=== PATIENT | female | born 1990 | race Caucasian/White ===

== ENCOUNTER 2016-10-01 20:20 | Emergency (ER) | payer OTHER ==
[2016-10-01] MEDS ORDERED: DEXAMETHASONE SOD PHOS INJ 10 MG/1 ML VIAL IM ONE (20:41)
[2016-10-01] MEDS ORDERED: DIPHENHYDRAMINE HCL 50 MG/ML VIAL IM ONE (20:41)
[2016-10-01] MEDS ORDERED: FAMOTIDINE 20 MG TABLET PO ONE (20:42)
--- NOTE | 2016-10-01 20:52 | ER Document Report ---
ED General - General Chief Complaint: Rash Stated Complaint: POSSIBLE ALLERGIC REACTION Time Seen by Provider: 10/01/16 20:36 Mode of Arrival: Ambulatory Information source: Patient Notes: Patient presents emergency department with reports that she was walking her dog is grasping some fire ants bit her. She reports she immediately started itching. She has hives to her foot upper thighs and her trunk. Patient reports it feels chest tightness that comes and goes. Patient reports she is not allergic to anything that she knows of. TRAVEL OUTSIDE OF THE [place] IN LAST 30 DAYS: No - HPI Onset: Just prior to arrival Onset/Duration: Sudden Quality of pain: No pain, Other - itchy Associated symptoms: Other - chest tight Exacerbated by: Denies Relieved by: Denies Similar symptoms previously: No Recently seen / treated by doctor: No - Related Data Allergies/Adverse Reactions: No Known Allergies Allergy (Unverified 10/01/16 20:22) Past Medical History - General Information source: Patient Last Menstrual Period: 3 weeks ago - Social History Smoking Status: Unknown if Ever Smoked Cigarette use (# per day): No Frequency of alcohol use: Occasional Drug Abuse: None Occupation: active duty Family History: None Patient has suicidal ideation: No Patient has homicidal ideation: No - Medical History Medical History: Negative Renal/ Medical History: Denies: Hx Peritoneal Dialysis Past Surgical History: Reports: Hx Nose Surgery Review of Systems - Review of Systems Notes: Review HPI for review of systems., All other systems negative Physical Exam - Vital signs Vitals: Temp Pulse Resp BP Pulse Ox 98.1 F 78 17 134/89 H 100 10/01/16 20:23 10/01/16 20:23 10/01/16 20:23 10/01/16 20:23 10/01/16 20:23 - Notes Notes: PHYSICAL EXAMINATION: GENERAL: In no acute distress HEAD: Atraumatic, normocephalic. EYES: Pupils equal round and reactive to light, extraocular movements intact, sclera anicteric, conjunctiva are normal. ENT: nares patent, oropharynx clear without exudates. Moist mucous membranes. NECK: Normal range of motion, supple without lymphadenopathy LUNGS: CTAB and equal. No wheezes rales or rhonchi. HEART: Regular rate and rhythm without murmurs ABDOMEN: Soft, no tenderness. No guarding, no rebound EXTREMITIES: Normal range of motion, no pitting edema. No cyanosis. NEUROLOGICAL: Cranial nerves grossly intact. Normal sensory/motor exams. PSYCH: Normal mood, normal affect. - Skin Skin Temperature: Warm Skin Moisture: Dry Location of irregularity: Generalized - left foot, trunk, upper thighs, no hives to arms Character of irregularity: Other - hives Course - Re-evaluation Re-evalutation: 10/01/16 21:11 medication administered, pt hives decreasing, feeling much better 10/01/16 21:45 Patient reports she feels 100% better hives completely gone no distress. Patient instructed on EpiPen avoid fire ants and follow-up with her BAS. - Vital Signs Vital signs: Temp Pulse Resp BP Pulse Ox 98.1 F 78 17 134/89 H 100 10/01/16 20:23 10/01/16 20:23 10/01/16 20:23 10/01/16 20:23 10/01/16 20:23 Discharge - Discharge Clinical Impression: allergic reaction to fire ants, Elevated blood pressure reading Instructions: Acute Allergic Reaction ([facility]), Use of Diphenhydramine, Steroid Medication Injection, Steroid Medication, Epinephrine Additional Instructions: *You have been evaluated for an allergic reaction to fire ants *Avoid fire ants *Benadryl as indicated for the next 48 hours *Use epi pen as indicated *Follow up with your BAS for recheck this week *Return to ED for worsening condition, changes, needs, concerns, trouble breathing. Monitor your blood pressure. Your blood pressure was elevated today. This may be because you were anxious, in pain or because you need medication. It is important to follow up with your primary care provider for full evaluation. Prescriptions: Epinephrine [Epipen 2-Killian] 0.3 mg IM ONCE PRN #1 syr PRN Reason: Prednisone [Deltasone 10 mg Tablet] 10 mg PO ASDIR PRN #21 tablet PRN Reason: Forms: Elevated Blood Pressure
[2016-10-01 22:28] VITALS: BP 109/91
== END 2016-10-01 22:28 | disposition home or self-care (01) ==
LOC: ER 20:20
DX: T63.421A Toxic effect of venom of ants, accidental (unintentional), initial encounter (principal); L50.8 Other urticaria; R03.0 Elevated blood-pressure reading, without diagnosis of hypertension
CPT/HCPCS: 99282; 96372; J1200; J1100